=== PATIENT | male | born 1995 | race Two or more races ===

== ENCOUNTER 2018-06-15 16:39 | Emergency (ER) | payer MEDICAID ==
[~2018-06-15] VITALS: Ht 165.1 cm; Wt 81.6 kg
[2018-06-15 17:08] VITALS: BP 123/75
[2018-06-15] MEDS ORDERED: ALBUTEROL SULF 2.5 MG/0.5ML(0.5%) NEB SOLN NEB ONE (17:15)
[2018-06-15] MEDS ORDERED: IPRATROPIUM BROM 0.5 MG/2.5ML INH SOL NEB ONE (17:15)
== END 2018-06-15 17:53 | disposition home or self-care (01) ==
LOC: ER 16:46
DX: J20.9 Acute bronchitis, unspecified (principal)
CPT/HCPCS: 71046; 94640; 99283; J7611; J7644

== ENCOUNTER 2019-06-26 14:35 | Emergency (ER) | payer MEDICAID ==
[~2019-06-26] VITALS: Ht 165.1 cm; Wt 86.2 kg
[2019-06-26 16:34] VITALS: BP 149/90
[2019-06-26] MEDS ORDERED: cefTRIAXone SOD 1,000 MG VL IM ONE (17:15)
== END 2019-06-26 17:39 | disposition home or self-care (01) ==
LOC: ER 14:35
DX: H66.91 Otitis media, unspecified, right ear (principal); J20.9 Acute bronchitis, unspecified
CPT/HCPCS: 96372; 99283; J0696

== ENCOUNTER 2021-08-06 15:19 | Emergency (ER) | payer SELFPAY ==
[~2021-08-06] VITALS: Ht 167.6 cm; Wt 86.2 kg
[2021-08-06 15:41] VITALS: BP 167/71
[2021-08-06] MEDS ORDERED: LIDOCAINE 1% HCL (LOCAL ANESTH.) INJ 20ML MDV ONE (16:08)
[2021-08-06] MEDS ORDERED: TETANUS-DIPTH-ACEL PERTUSSIS 0.5ML SYR Tdap IM ONE (16:30)
== END 2021-08-06 16:48 | disposition home or self-care (01) ==
LOC: ER 15:19
DX: S61.210A Laceration without foreign body of right index finger without damage to nail, initial encounter (principal); W26.8XXA Contact with other sharp object(s), not elsewhere classified, initial encounter; Y93.89 Activity, other specified; Y92.89 Other specified places as the place of occurrence of the external cause; Y99.8 Other external cause status
CPT/HCPCS: 12001; 90471; 90715; 99283; J2001

== ENCOUNTER 2024-02-21 23:42 | Emergency (ER) | payer MEDICAID ==
[~2024-02-21] VITALS: Ht 165.1 cm; Wt 97.2 kg
[2024-02-22 00:49] LABS: Basophils # (auto) 0 10 ^3/uL (0-0.2); Basophils % (auto) 0.3 % (0.0-2.0); Eosinophils # (auto) 0.1 10 ^3/uL (0-0.8); Eosinophils % (auto) 0.7 % (0.0-7.0); Hematocrit 45.6 % (41.0-53.0); Hemoglobin 15.3 g/dL (13.5-17.5); Lymphocytes # (auto) 1.8 10 ^3/uL (0.4-5.4); Lymphocytes % (auto) 15.7 % (10.0-50.0); Mean Corpuscular Hemoglobin 29.1 pg (28.0-32.0); Mean Corpuscular Hgb Conc. 33.5 g/dL (32.0-36.0); Mean Corpuscular Volume 86.9 fL (80.0-100.0); Monocytes # (auto) 0.7 10 ^3/uL (0-1.3); Monocytes % (auto) 5.7 % (0.0-12.0); Neutrophils # (auto) 9.1 10 ^3/uL (1.6-8.6); Neutrophils % (auto) 77.6 % (37.0-80.0); Platelet Count (auto) 297 10^3/uL (140-450); Red Blood Cells 5.25 10^6/uL (4.5-5.90); Red Cell Distribution Width 13.2 % (11.8-14.3); White Blood Cell 11.7 10^3/uL (4.4-10.8)
[2024-02-22 01:04] LABS: Chloride 101 mmol/L (98-107); Potassium 3.8 mmol/L (3.5-5.1); Sodium 136 mmol/L (136-145)
[2024-02-22 01:05] LABS: Anion Gap 7 (5-15); Calcium 9.8 mg/dL (8.7-10.4); Carbon Dioxide 28 mmol/L (20-30)
[2024-02-22 01:10] LABS: BUN/Creatinine Ratio 9.5 (10.0-20.0); Blood Urea Nitrogen 10 mg/dL (9-23); Glucose 115 mg/dL (74-106)
[2024-02-22] MEDS ORDERED: IBUP-1455 PO (01:36)
[2024-02-22 03:02] VITALS: BP 128/84; TEMP 98.8
[2024-02-22] MEDS: methylPREDNISolone SOD SUCC 125 MG/2 ML VL IM ONE (03:20)
[2024-02-22] MEDS: KETOROLAC TROMETH 30 MG/ML 1ML VIAL IM ONE (03:20)
[2024-02-22 03:21] VITALS: PULSE 85; RESP 18; O2SAT 96
== END 2024-02-22 03:24 | disposition home or self-care (01) ==
LOC: ER 23:42
DX: N43.3 Hydrocele, unspecified (principal); N50.89 Other specified disorders of the male genital organs
CPT/HCPCS: 36415; 76870; 80048; 85025; 96372; 99285; J1885; J2919